=== PATIENT | female | born 1980 | race Two or more races ===

== ENCOUNTER 2023-06-30 21:18 | Emergency (ER) | payer MEDICAID, OTHER ==
[~2023-06-30] VITALS: Ht 165.1 cm; Wt 136.4 kg
[2023-06-30] MEDS ORDERED: KETOROLAC TROMETH 60MG/2ML VIAL IM ONE (22:15)
[2023-06-30] MEDS ORDERED: CYCL-837 PO (22:16)
[2023-06-30] MEDS ORDERED: IBUP-1456 PO (22:16)
[2023-06-30] MEDS ORDERED: PRED20TA2 PO (23:17)
[2023-06-30] MEDS ORDERED: AZIT-43 PO (23:17)
[2023-06-30 23:45] VITALS: BP 142/84; PULSE 89; RESP 18; TEMP 98; O2SAT 99
== END 2023-06-30 23:45 | disposition home or self-care (01) ==
LOC: EDBD 21:18 → ER 21:23
DX: S39.012A Strain of muscle, fascia and tendon of lower back, initial encounter (principal); M54.41 Lumbago with sciatica, right side; J06.9 Acute upper respiratory infection, unspecified; E66.01 Morbid (severe) obesity due to excess calories; I10 Essential (primary) hypertension; Z68.43 Body mass index [BMI] 50.0-59.9, adult; Z98.890 Other specified postprocedural states; Z79.899 Other long term (current) drug therapy; X50.1XXA Overexertion from prolonged static or awkward postures, initial encounter; Y93.89 Activity, other specified; Y92.89 Other specified places as the place of occurrence of the external cause; Y99.8 Other external cause status
CPT/HCPCS: 96372; 99283; J1885